=== PATIENT | female | born 1985 | race Caucasian/White ===

== ENCOUNTER → 2017-09-23 | Outpatient (CLI) | payer OTHER ==
--- NOTE | 2017-09-23 12:25 | DIAGNOSTIC IMAGING REPORT ---
THYROID ULTRASONOGRAPHY CLINICAL HISTORY: Thyroid nodule. Patient scheduled for biopsy. COMPARISON STUDY: Outside thyroid ultrasound from [facility] FINDINGS: The right lobe measures 5.2 x 1.9 x 2.1 cm. The left lobe measures 3.8 x 1.2 x 1.2 cm. The previously described vague left lobe thyroid nodule is not clearly delineated on the current study. There is a 5 mm left lobe thyroid cyst. Both thyroid lobes are inhomogeneous in echotexture. The left thyroid lobe appears less inhomogeneous on the preceding study, and the right lobe appears more inhomogeneous. The patient's right lobe was diffusely tender to palpation. By history the patient is hyperthyroid with a low TSH. The scan findings and clinical presentation are consistent with a thyroiditis. There were no suspicious masses to target, and therefore the thyroid biopsy was canceled. Given the prior recommendation for biopsy, it would seem prudent to obtain a repeat ultrasound study in 6-12 months. IMPRESSION: 1. Ultrasonographic findings most consistent with a thyroiditis 2. There were no suspicious masses to target, and therefore the scheduled thyroid biopsy was canceled 3. Given the prior recommendation for biopsy, it would seem prudent to obtain a repeat ultrasound in 6-12 months. Electronically signed by: Theodore Flores M.D. 09/23/2017 12:24 PM Dictated Date/Time: 09/23/2017 12:20 PM
== END | disposition home or self-care (01) ==
LOC: C.ULTR 10:59
PROVIDERS: ATTEND Nurse Practitioner Adult Health
DX: E07.89 Other specified disorders of thyroid (principal)